=== PATIENT | male | born 1975 | race Caucasian/White ===

== ENCOUNTER 2016-08-28 18:43 | Emergency (ER) | payer SELFPAY ==
[~2016-08-28] VITALS: Ht 165.1 cm; Wt 68.0 kg
[2016-08-28 18:45] VITALS: BP 154/87; PULSE 90; RESP 15; TEMP 98.2; O2SAT 98
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
[2016-08-28] MEDS ORDERED: ACETAMINOPHEN 325 MG TAB PO ONE (19:45)
--- NOTE | 2016-08-28 20:35 | RADRPT ---
EXAM DATE/TIME: 08/28/2016 20:14 [facility] COMPARISON: No previous studies available for comparison. INDICATIONS : Headaches. RADIATION DOSE: 38.25 CTDIvol (mGy) MEDICAL HISTORY : Hypertension. SURGICAL HISTORY : None. ENCOUNTER: Initial ACUITY: 1 day PAIN SCALE: 7/10 LOCATION: cranial TECHNIQUE: Multiple contiguous axial images were obtained of the head. Using automated exposure control and adj ustment of the mA and/or kV according to patient size, radiation dose was kept as low as reasonably a chievable to obtain optimal diagnostic quality images. FINDINGS: CEREBRUM: The ventricles are normal for age. No evidence of midline shift, mass lesion, hemorrhage or acute in farction. No extra-axial fluid collections are seen. POSTERIOR FOSSA: The cerebellum and brainstem are intact. The 4th ventricle is midline. The cerebellopontine angle i s unremarkable. EXTRACRANIAL: The visualized portion of the orbits is intact. SKULL: The calvaria is intact. No evidence of skull fracture. CONCLUSION: Normal examination. Jarred Hummel Jr., MD on August 28, 2016 at 20:32 Board Certified Radiologist. This report was verified electronically.
--- NOTE | 2016-08-28 20:49 | RADRPT ---
EXAM DATE/TIME: 08/28/2016 20:26 [facility] COMPARISON: No previous studies available for comparison. INDICATIONS : Pain from walking around for three days. MEDICAL HISTORY : None. SURGICAL HISTORY : None. ENCOUNTER: Initial ACUITY: 1 day PAIN SCORE: 4/10 LOCATION: Right foot. FINDINGS: Two view examination of the right foot demonstrates no soft tissue swelling, dislocation, or fracture . The calcaneus is intact. Bony mineralization is normal. CONCLUSION: Unremarkable limited examination of the right foot. Jarred Hummel Jr., MD on August 28, 2016 at 20:47 Board Certified Radiologist. This report was verified electronically.
--- NOTE | 2016-08-28 20:49 | RADRPT ---
EXAM DATE/TIME: 08/28/2016 20:28 [facility] COMPARISON: No previous studies available for comparison. INDICATIONS : Pain from walking for three days. MEDICAL HISTORY : None. SURGICAL HISTORY : None. ENCOUNTER: Initial ACUITY: 1 day PAIN SCORE: 4/10 LOCATION: Left foot. FINDINGS: Two view examination of the left foot demonstrates no soft tissue swelling, dislocation, or fracture. The calcaneus is intact. Bony mineralization is normal. CONCLUSION: Unremarkable limited examination of the left foot. Jarred Hummel Jr., MD on August 28, 2016 at 20:47 Board Certified Radiologist. This report was verified electronically.
[2016-08-28] MEDS ORDERED: TYLE325T PO (21:01)
== END 2016-08-28 21:53 | disposition home or self-care (01) ==
LOC: NEPD 18:43
DX: M79.671 Pain in right foot (principal); M79.672 Pain in left foot; I10 Essential (primary) hypertension; F17.200 Nicotine dependence, unspecified, uncomplicated
CPT/HCPCS: 70450; 73620; 99284